=== PATIENT | female | born 1965 ===

== ENCOUNTER 2021-05-22 19:15 | Emergency (ER) | payer OTHER ==
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
--- NOTE | 2021-05-22 20:17 | RAD REPORT ---
EXAM DESCRIPTION: RAD - Shoulder Right 2 View - 05/22/2021 7:34 pm CLINICAL HISTORY: Right shoulder pain FINDINGS: No fracture or dislocation is seen.
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
[2021-05-22 20:38] LABS: Absolute Lymphocytes (CBC) 2.3 K/uL (0.7-4.9); Hematocrit 47.3 % (36.0-45.0); MPV 8.3 fL (7.6-11.3); RBC Red Blood Cell Count 5.37 M/uL (3.86-4.86)
[2021-05-22 20:42] LABS: Protime INR 0.97
[2021-05-22 20:52] LABS: ALT/SGPT 28 U/L (12-78); AST/SGOT 21 U/L (15-37); Albumin 3.6 g/dL (3.4-5.0); Alkaline Phosphatase 105 U/L (45-117); BUN Blood Urea Nitrogen 10 mg/dL (7-18); Bicarbonate 24 mmol/L (21-32); Bilirubin Direct < 0.1 mg/dL (0-0.2); Bilirubin Total 0.4 mg/dL (0.2-1.0); Glucose Level 115 mg/dL (74-106); Potassium 3.7 mmol/L (3.5-5.1); Protein, Total 7.7 g/dL (6.4-8.2); Sodium Level 141 mmol/L (136-145)
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
[2021-05-22 23:11] VITALS: BP 138/84; TEMP 98.4; O2SAT 98
== END 2021-05-22 22:52 | disposition home or self-care (01) ==
LOC: ER 19:15
DX: S20.219A Contusion of unspecified front wall of thorax, initial encounter (principal); S40.011A Contusion of right shoulder, initial encounter; S50.12XA Contusion of left forearm, initial encounter; I10 Essential (primary) hypertension; V43.52XA Car driver injured in collision with other type car in traffic accident, initial encounter; F17.210 Nicotine dependence, cigarettes, uncomplicated
CPT/HCPCS: 85025; 80048; 36415; 85610; 82565; 80076; 85730; 70450; 72125; 71260; 74177; 73090; 73030; 73110; 99284; Q9967